=== PATIENT | male | born 1965 | race Caucasian/White ===

== ENCOUNTER 2018-10-24 09:53 | Emergency (ER) | payer SELFPAY ==
[2018-10-24 10:05] VITALS: TEMP 97.6
[2018-10-24] MEDS ORDERED: SODIUM CHLORIDE 0.9% 1000ML 1,000 ML IV ONE (10:16)
[2018-10-24 10:53] VITALS: RESP 20
[2018-10-24 12:08] VITALS: BP 155/85; PULSE 85; O2SAT 100
== END 2018-10-24 11:55 | disposition home or self-care (01) | DRG 395 ==
LOC: ED 09:53
DX: T18.5XXA Foreign body in anus and rectum, initial encounter (principal); F12.90 Cannabis use, unspecified, uncomplicated; F15.90 Other stimulant use, unspecified, uncomplicated
CPT/HCPCS: 74019; 74176; 99283; 99284